=== PATIENT | male | born 1950 | race Caucasian/White ===

== ENCOUNTER 2023-09-23 08:06 | Emergency (ER) | payer OTHER ==
--- NOTE | 2023-09-23 08:40 | ED Head Injury ---
General Chief Complaint: Trauma-Non Activation Stated Complaint: FALL | HEAD AND LT SHOULDER PAIN Nursing Triage Note: PT AMB TO RM 6 PT STATES MISSED CHAIR FELL ON BUTTOCKS, HIT L SHOULDER AND HEAD, PT DENIES LOC. Source: patient Exam Limitations: no limitations History of Present Illness Date Seen by Provider: Sep 23, 2023 Time Seen by Provider: 08:20 Initial Comments This 72-year-old gentleman presents to the emergency room via private vehicle requesting evaluation of his head injury. He was holding his laptop computer and sat down into a chair at his sister's home in the dark. He is somewhat missed the chair causing him to fall against the wall. He struck his left shoulder and head against the wall hard enough that his shoulder broke through the drywall. He is anticoagulated with Eliquis because of atrial fibrillation. By his judgment, he struck his head hard enough that he should be evaluated with CT imaging according to his dean's instructions. He did not have loss of consciousness. He does not seem to have serious injury of his left shoulder. He denies any neurologic changes. He does have mild headache and reports of lower back pain of 5/10 which is chronic and unchanged. He is visiting form the [employer] and lives in [place]. Allergies and Home Medications Allergies Coded Allergies: No Known Drug Allergies (Unverified , 09/23/23) Patient Home Medication List Home Medication List Reviewed: Yes Review of Systems Review of Systems Constitutional: no symptoms reported Eyes: No Symptoms Reported Ears, Nose, Mouth, Throat: no symptoms reported Respiratory: no symptoms reported Cardiovascular: see HPI Gastrointestinal: no symptoms reported Genitourinary: no symptoms reported Musculoskeletal: see HPI Skin: no symptoms reported Psychiatric/Neurological: See HPI Endocrine: No Symptoms Reported Hematologic/Lymphatic: See HPI Past Mdrpntr-Gvckoi-Vdlfba Hx Patient Social History Tobacco Use?: No Smoking Status: Former Smoker Substance use?: No Alcohol Use?: No Pt feels they are or have been: No Immunizations Up To Date Influenza Vaccine Up-to-Date: Yes; Up-to-Date First/Initial COVID19 Vaccinat: YES Second COVID19 Vaccination [place]: YES Past Medical History Surgery/Hospitalization HX: A-FIB, LIVER PROBLEMS, HERNIA, GB, LOOP RECORDER, [place]. PORT R CHEST WALL. Surgeries: Yes (Point) Abdominal (Hernia), Cardiac (Loop recorder) Respiratory: No Cardiac: Yes Atrial Fibrillation Neurological: No Reproductive Disorders: No Genitourinary: Yes ("Kidney lesions") Gastrointestinal: Yes Crohns Disease, Cirrhosis Musculoskeletal: Yes Chronic Back Pain Endocrine: No HEENT: No Cancer: No Psychosocial: No Physical Exam Vital Signs Vital Signs - First Documented 09/23/23 09/23/23 08:20 10:00 Temp 36.5 Pulse 72 Resp 18 B/P (MAP) 106/72 Pulse Ox 93 O2 Delivery Room Air Capillary Refill : Height, Weight, BMI Height: '" Weight: lbs. oz. kg; BMI Method: General Appearance: WD/WN, no apparent distress HEENT: PERRL/EOMI, normal ENT inspection, TMs normal Neck: normal inspection, tender midline (posterior stated as chronic and unchanged form baseline) Cardiovascular: no edema, no murmur, irregularly irregular Respiratory: lungs clear, normal breath sounds, no respiratory distress Gastrointestinal: non tender, soft Extremities: normal range of motion, non-tender, normal inspection, no pedal edema Psychiatric: alert, oriented x 3 Crainal Nerves: normal hearing, normal speech, PERRL Coordination/Gait: normal finger to nose Motor/Sensory: no motor deficit, no sensory deficit Skin: normal color, warm/dry [place] Coma Score Best Eye Response: (4) Open Spontaneously Best Verbal Response: (5) Oriented Best Motor Response: (6) Obeys Commands [place] Total: 15 Progress/Results/Core Measures Results/Orders My Orders Orders - VIOLETTE WADE MD Ct Head/Cervical Spine Wo (09/23/23 08:33) Vital Signs/I&O Progress Progress Note : Time: 10:00 Progress Note Patient exhibited no neurologic changes. Headache did not escalate. CT of the head was obtained and reviewed by me. I appreciated no acute fractures or intracranial hemorrhages. CT of the cervical spine was included as he did report pain in the neck, although it was chronic and unchanged. CT report was reviewed. Patient was discharged in stable condition. See discharge instructions for my discussion with patient. Diagnostic Imaging Diagonstic Imaging: CT Plain Films/CT/US/NM/MRI: c-spine, head Comments NAME: MAMIE MAYO [facility] REC#: [id number] PT STATUS: REG ER : 1950 PHYSICIAN: VIOLETTE WADE MD ADMIT DATE: 09/23/23/ER Draft Date of Exam:09/23/23 CT HEAD/CERVICAL SPINE WO Clinical Indication: Patient missed chair and fell on buttocks. Patient hit left shoulder and head. Exam: Head CT without IV contrast with sagittal and coronal reformations. Axial CT scan of the cervical spine with sagittal and coronal reformations. Auto Exposure Controls were utilized during the CT exam to meet ALARA standards for radiation dose reduction. Comparison: None. Findings: Head CT: There is no evidence of acute cerebral infarct, intracranial hemorrhage, or gross mass effect. The brain parenchymal volume appears appropriate for patient's age. Chronic small vessel ischemic disease is seen. There is normal carlos-white matter distinction. There is no significant midline shift or herniation. There is no evidence of hydrocephalus. The basal cisterns are unremarkable. The skull, extracranial soft tissue, and orbits are unremarkable. There is a small amount of consolidation involving both mastoid air cells with chronic bony sclerosis. There is mild mucosal thickening involving the right maxillary sinus. Cervical spine: There is no acute cervical spine fracture. There is grade 1 anterolisthesis of C2 on C3 and C4 on C5. There are cervical spine degenerative spurs and facet arthropathy. There is moderate bilateral C6-C7 and C7-T1 neuroforaminal narrowing due to uncinate spurs. There is no significant neck soft tissue abnormality. Partially visualized right-sided central line is noted. The visualized upper lung arthur are clear. Impression: 1: There is no evidence of acute intracranial process. There is no skull fracture. 2: There is cervical spine degenerative disease with no acute fracture. Dictated on workstation # [id number] Dict: 09/23/23 0903 Trans: 09/23/23 0917 [facility] [id number] Interpreted by: DELONTE PEREA MD Departure Impression Primary Impression: Head injury Qualified Codes: S09.90XA - Unspecified injury of head, initial encounter Additional Impression: Anticoagulated Disposition: 01 HOME, SELF-CARE Condition: Stable Departure-Patient Inst. Decision time for Depature: 09:49 Referrals: NO,LOCAL PHYSICIAN (PCP/Family) Primary Care Physician Patient Instructions: Going Home on Blood Thinners , Minor Head Injury, Adult ED Add. Discharge Instructions: No bleeds or acute injuries were identified on your CT scan. Return to care if you have worsening symptoms such as escalating pain, confusion, or any other neurologic changes. You may continue your usual medications as previously directed. All discharge instructions reviewed with patient and/or family. Voiced understanding. VIOLETTE WADE MD Sep 23, 2023 08:40
--- NOTE | 2023-09-23 09:17 | Diagnostic Imaging Report ---
Clinical Indication: Patient missed chair and fell on buttocks. Patient hit left shoulder and head. Exam: Head CT without IV contrast with sagittal and coronal reformations. Axial CT scan of the cervical spine with sagittal and coronal reformations. Auto Exposure Controls were utilized during the CT exam to meet ALARA standards for radiation dose reduction. Comparison: None. Findings: Head CT: There is no evidence of acute cerebral infarct, intracranial hemorrhage, or gross mass effect. The brain parenchymal volume appears appropriate for patient's age. Chronic small vessel ischemic disease is seen. There is normal carlos-white matter distinction. There is no significant midline shift or herniation. There is no evidence of hydrocephalus. The basal cisterns are unremarkable. The skull, extracranial soft tissue, and orbits are unremarkable. There is a small amount of consolidation involving both mastoid air cells with chronic bony sclerosis. There is mild mucosal thickening involving the right maxillary sinus. Cervical spine: There is no acute cervical spine fracture. There is grade 1 anterolisthesis of C2 on C3 and C4 on C5. There are cervical spine degenerative spurs and facet arthropathy. There is moderate bilateral C6-C7 and C7-T1 neuroforaminal narrowing due to uncinate spurs. There is no significant neck soft tissue abnormality. Partially visualized right-sided central line is noted. The visualized upper lung arthur are clear. Impression: 1: There is no evidence of acute intracranial process. There is no skull fracture. 2: There is cervical spine degenerative disease with no acute fracture. Dictated by: Dictated on workstation # [id number]
[2023-09-23 10:00] VITALS: BP 106/72
== END 2023-09-23 10:00 | disposition home or self-care (01) ==
LOC: ER 08:10
DX: S09.90XA Unspecified injury of head, initial encounter (principal); I48.91 Unspecified atrial fibrillation; Z87.891 Personal history of nicotine dependence; Z79.01 Long term (current) use of anticoagulants; W07.XXXA Fall from chair, initial encounter
CPT/HCPCS: 70450; 72125